=== PATIENT | female | born 1990 | race Caucasian/White ===

== ENCOUNTER 2017-03-29 21:36 | Emergency (ER) | payer OTHER ==
[~2017-03-29] VITALS: Ht 170.2 cm; Wt 72.5 kg
[~2017-03-29 21:36] MED LIST: NORE-17 PO; OMEP20CA16 PO
[2017-03-29 21:49] VITALS: Ht 170.2 cm; Wt 72.5 kg
[2017-03-29] MEDS ORDERED: ONDANSETRON 4 MG INJ IV STA (22:12)
[2017-03-29] MEDS ORDERED: DICYCLOMINE 10 MG CAP PO ONE (22:30)
[2017-03-29] MEDS ORDERED: SOD CHLORIDE 0.9% 1,000 ML IV ONE (22:30)
[2017-03-29 22:55] LABS: ADD SCAN DIFF NO
[2017-03-29 22:57] LABS: BASOPHILS % 0.5 % (0.0-2.0); EOSINOPHILS # 0.1 10^3/ul (0.0-0.5); EOSINOPHILS % 1.2 % (0.0-7.0); HEMATOCRIT 37.7 % (37.0-47.0); HEMOGLOBIN 12.5 g/dl (12.0-16.0); LYMPHOCYTES # 1.9 10^3/ul (0.8-2.9); LYMPHOCYTES % 22.5 % (15.0-51.0); MEAN CORPUSCULAR HEMOGLOBIN 29.7 pg (29.0-33.0); MEAN CORPUSCULAR HGB CONC 33.2 g/dl (32.0-37.0); MEAN CORPUSCULAR VOLUME 89.5 fl (82.0-101.0); MEAN PLATELET VOLUME 9.6 fl (7.4-10.4); MONOCYTE # 1.1 10^3/ul (0.3-0.9); MONOCYTES % 13.2 % (0.0-11.0); NEUTROPHIL # 5.2 10^3/ul (1.6-7.5); NEUTROPHILS % 62.4 % (39.0-77.0); PLATELET COUNT 284 10^3/UL (140-415); RED BLOOD COUNT 4.21 10^6/ul (4.20-5.40); RED CELL DISTRIBUTION WIDTH 13.2 % (11.5-14.5); WHITE BLOOD COUNT 8.3 10^3/ul (4.8-10.8)
[2017-03-29 23:01] LABS: ADD UMIC YES; UR ASCORBIC ACID NEGATIVE (NEGATIVE); UR BILIRUBIN (Dip) NEGATIVE (NEGATIVE); UR BLOOD (Dip) 3+ mg/dL (NEGATIVE); UR CLARITY SLIGHTLY CLOUDY (CLEAR); UR COLOR YELLOW (YELLOW); UR GLUCOSE (Dip) 2+ mg/dL (NEGATIVE); UR KETONES (Dip) NEGATIVE (NEGATIVE); UR LEUKOCYTE ESTERASE (Dip) NEGATIVE Leu/ul (NEGATIVE); UR NITRITE (Dip) NEGATIVE (NEGATIVE); UR RBC > 182 /HPF (0-5); UR SPECIFIC GRAVITY (Dip) 1.023 (1.003-1.030); UR TOTAL PROTEIN (Dip) 1+ mg/dl (NEGATIVE); UR UROBILINOGEN (Dip) NEGATIVE (NEGATIVE)
[2017-03-29 23:20] LABS: ALBUMIN 4.8 g/dl (3.3-4.9); ALBUMIN/GLOBULIN RATIO 1.5; BILIRUBIN,INDIRECT 0.2 mg/dl (0-1.1); BILIRUBIN,TOTAL 0.2 mg/dl (0.2-1.3); CALCIUM 9.3 mg/dl (8.4-10.2); CREATININE 0.72 mg/dl (0.44-1.00); POTASSIUM 3.3 mmol/L (3.5-5.1)
[2017-03-30] MEDS ORDERED: ONDA-43 PO (00:02)
[2017-03-30] MEDS ORDERED: LOPE2CAP PO (00:02)
[2017-03-30] MEDS ORDERED: CIPR500T4 PO (00:03)
[2017-03-30 00:29] VITALS: BP 101/62; PULSE 83; RESP 16
--- NOTE | 2017-03-30 04:33 | ERD ---
ER Documentation Chief Complaint Date/Time DATE: 03/30/17 TIME: 04:30 Chief Complaint n/v/d for 2 weeks HPI This is a 26-year-old female presents to the ER with nausea vomiting and diarrhea for the last 2 weeks. Vomiting is nonbilious nonbloody. Diarrhea is watery with no blood in it. Patient has not tried anything for her symptoms. Patient denies any fevers or chills. She denies any recent travel. Patient does admit to associated left lower quadrant crampy pain which is worse whenever she has to have a bout of diarrhea. ROS 12 point review of systems was done, all negative except per HPI. Medications Home Meds Active Scripts Ciprofloxacin Hcl* (Ciprofloxacin Hcl*) 500 Mg Tablet, 500 MG PO BID for 3 Days , TAB Prov:QUINN GRULLON 03/30/17 Loperamide Hcl* (Imodium*) 2 Mg Capsule, 2 MG PO .WITH EACH DIARRHEA Y for DIARRHEA for 3 Days, CAP MAX 16 mg/day Prov:QUINN GRULLON 03/30/17 Ondansetron Hcl* (Zofran*) 4 Mg Tab, 4 MG PO Q4H Y for NAUSEA AND OR VOMITING for 3 Days, TAB Prov:QUINN GRULLON 03/30/17 Reported Medications Norethindrone A-E Estradiol (GILDESS) 1 Each Tablet, 1 EACH PO, TAB 03/12/16 Omeprazole* (Omeprazole*) 20 Mg Capsule.dr, 20 MG PO DAILY, #30 CAP 03/12/16 Allergies Allergies: Coded Allergies: No Known Allergy (Verified , 07/27/12) PMhx/Soc History of Surgery: Yes (CHOLECYSTECTOMY) Anesthesia Reaction: No Hx Neurological Disorder: No Hx Respiratory Disorders: No Hx Cardiac Disorders: No Hx Psychiatric Problems: No Hx Miscellaneous Medical Probl: No Hx Alcohol Use: No Hx Substance Use: No Hx Tobacco Use: No Smoking Status: Never smoker Physical Exam Vitals Vital Signs Date Time Temp Pulse Resp B/P Pulse Ox O2 Delivery O2 Flow Rate FiO2 03/30/17 00:29 83 16 101/62 99 Room Air 03/29/17 21:49 97.5 77 18 124/66 100 Physical Exam GENERAL: The patient is well-developed, well-nourished, in no acute distress. NECK: Cervical spine is non tender with no step off. Supple, no nuchal rigidity HEENT: Atraumatic. Pupils equal, round and reactive to light. Extraocular muscles are grossly intact. Conjunctivae pink, no discharge. The oropharynx is clear with no erythema or exudates and the mucosa is moist. No signs of dehydration. RESPIRATORY: Clear to auscultation bilaterally. There are no rales, wheezes or rhonchi. HEART: Regular rate and rhythm. No murmurs, clicks, rubs or gallops. ABDOMEN: Soft, nontender, nondistended. Active bowel sounds in all 4 quadrants. No rebounding or guarding. Negative McBurney point tenderness. NEUROLOGIC: Alert and oriented. SKIN: There is no rash. The skin is warm and dry. Normal capillary refill. Result Diagram: 03/29/17222903/29/172229 Results 24 hrs Laboratory Tests Test 03/29/17 22:30 White Blood Count 8.310^3/ul Red Blood Count 4.2110^6/ul Hemoglobin 12.5g/dl Hematocrit 37.7% Mean Corpuscular Volume 89.5fl Mean Corpuscular Hemoglobin 29.7pg Mean Corpuscular Hemoglobin Concent 33.2g/dl Red Cell Distribution Width 13.2% Platelet Count 30326^3/UL Mean Platelet Volume 9.6fl Neutrophils % 62.4% Lymphocytes % 22.5% Monocytes % 13.2% Eosinophils % 1.2% Basophils % 0.5% Nucleated Red Blood Cells % 0.0/100WBC Neutrophils # 5.210^3/ul Lymphocytes # 1.910^3/ul Monocytes # 1.110^3/ul Eosinophils # 0.110^3/ul Basophils # 0.010^3/ul Nucleated Red Blood Cells # 0.010^3/ul Urine Color YELLOW Urine Clarity SLIGHTLY CLOUDY Urine pH 6.0 Urine Specific [place] 1.023 Urine Ketones NEGATIVEmg/dL Urine Nitrite NEGATIVEmg/dL Urine Bilirubin NEGATIVEmg/dL Urine Urobilinogen NEGATIVEmg/dL Urine Leukocyte Esterase NEGATIVELeu/ul Urine Microscopic RBC > 182/HPF Urine Microscopic WBC 8/HPF Urine Hemoglobin 3+mg/dL Urine Glucose 2+mg/dL Urine Total Protein 1+mg/dl Sodium Level 147mmol/L Potassium Level 3.3mmol/L Chloride Level 105mmol/L Carbon Dioxide Level 25mmol/L Anion Gap 20 Blood Urea Nitrogen 12mg/dl Creatinine 0.72mg/dl Glucose Level 107mg/dl Calcium Level 9.3mg/dl Total Bilirubin 0.2mg/dl Direct Bilirubin 0.00mg/dl Indirect Bilirubin 0.2mg/dl Aspartate Amino Transf (AST/SGOT) 19IU/L Alanine Aminotransferase (ALT/SGPT) 31IU/L Alkaline Phosphatase 81IU/L Total Protein 8.0g/dl Albumin 4.8g/dl Globulin 3.20g/dl Albumin/Globulin Ratio 1.50 Current Medications Medications (Trade) Dose Ordered Sig/Alex Route PRN Reason Start Time Stop Time Status Last Admin Dose Admin Sodium Chloride (NS) 1,000 ml @ 1,000 mls/hr Q1H ONCE IV 03/29/17 22:30 03/29/17 23:29 DC 03/29/17 22:32 Dicyclomine HCl (Bentyl) 20 mg ONCE ONCE PO 03/29/17 22:30 03/29/17 22:31 DC 03/29/17 22:33 Ondansetron HCl (Zofran Inj) 4 mg ONCE STAT IV 03/29/17 22:12 03/29/17 22:14 DC 03/29/17 22:32 Procedures/MDM This is a 26-year-old female presents to the ER with nausea vomiting and diarrhea this is likely acute gastroenteritis. Since patient has had PE symptoms for over a week she will be treated with a short course of Cipro for possible bacterial etiology. At this time patient did have slightly low sodium and potassium, however not very impressive. Patient is also does not have any symptoms of hyponatremia or hypokalemia. Patient was given fluids in the ER and felt significantly better. She was able to tolerate p.o. fluids. Patient will be sent home with Zofran, Imodium for her symptoms. She is afebrile and well- appearing. She is to follow-up with her primary care doctor within 1-2 days or return to ER sooner if symptoms worsen. My medical decision making shared with the patient she understands and agrees with plan. Departure Diagnosis: Primary Impression: Nausea vomiting and diarrhea Condition: Stable Patient Instructions: Self-Care for Vomiting and Diarrhea Additional Instructions: Llame al doctor LORETTA y sahara meliton VELIA PARA DENTRO DE 1-2 JIN.Dgale a la secretaria que nosotros le instruimos hacer esta velia.Avise o llame si vasquez condicin se empeora antes de la velia. Regresa aqui si peor o no mejor. QUINN GRULLON Mar 30, 2017 04:33
== END 2017-03-30 00:29 | disposition home or self-care (01) ==
LOC: FTE 21:36
DX: R11.2 Nausea with vomiting, unspecified (principal); R19.7 Diarrhea, unspecified
CPT/HCPCS: 80053; 81001; 85025; 96374; J2405; J7030; Z7502; Z7610

== ENCOUNTER 2018-06-11 07:03 | Day surgery (SDC) | END 2018-06-11 12:56 | disposition home or self-care (01) ==

== ENCOUNTER 2019-01-06 05:48 | Day surgery (SDC) | payer OTHER ==
[~2019-01-06] VITALS: Ht 165.1 cm; Wt 77.7 kg
[~2019-01-06 05:48] MED LIST changes: -NORE-17 PO
[2019-01-06 06:45] VITALS: Ht 165.1 cm; Wt 77.7 kg
[2019-01-06] MEDS ORDERED: FLUCONAZOLE (06:49)
[2019-01-06] MEDS ORDERED: SULFAMETHOXAZOLE (06:49)
[2019-01-06] MEDS ORDERED: DICYCLOMINE (06:49)
[2019-01-06 07:09] VITALS: BP 98/53; PULSE 69; RESP 16
[2019-01-06] MEDS ORDERED: MIDAZOLAM 1 MG/ML 2 ML INJ ONE ×2 (08:13→08:14)
[2019-01-06] MEDS ORDERED: FENTAnyl 50 MCG/ML VIAL ONE (08:13)
[2019-01-06 08:38] VITALS: BP 103/55; RESP 13
--- NOTE | 2019-01-06 11:32 | CONS ---
DATE OF ADMISSION: 01/06/2019 DATE OF CONSULTATION: PATIENT NAME: LINDSAY TA TYPE OF CONSULTATION: Preoperative gastroenterology. Dear Dr. Mckenzie: I thank you very much for this kind referral. HISTORY OF PRESENT ILLNESS: Ms. Lindsay Ta is a 28-year-old female patient who has been referred to me for further evaluation of upper abdominal pain, not responding to therapy with omeprazole. Th e patient had abdominal CT scan done and it was normal. The patient also complains of urgency to hav e a bowel movement after eating with chronic diarrhea. No rectal bleeding. She had a colonoscopy do ne by another market investigator. No colitis was identified. Her appetite has been good and there i s no history of significant weight loss. She is status post cholecystectomy. No liver disease. Not a hypertensive or diabetic. No heart disease, lung problem or kidney disease. SOCIAL HISTORY: Nonsmoker. No alcohol abuse. FAMILY HISTORY: No family history of gastrointestinal tract neoplasm. ALLERGIES: NO DRUG ALLERGIES. MEDICATIONS: Omeprazole. PHYSICAL EXAMINATION: VITAL SIGNS: She is 5 feet, 5 inches tall and weighs 169 pounds. HEART: Normal heart sounds. LUNGS: Clear. ABDOMEN: Soft. No masses. Normal bowel sounds. NEUROLOGIC: Normal. IMPRESSION: 1. Upper abdominal pain, not responding to therapy with omeprazole. 2. The patient had abdominal CT scan done and it was negative. 3. Urgency to have a bowel movement after eating with chronic diarrhea. 4. The patient had colonoscopy done by another market investigator and she states no abnormality was detected. 5. Status post cholecystectomy. PLAN: 1. Continue omeprazole. 2. Bentyl 10 mg p.o. t.i.d. before each meal. 3. Endoscopy for further evaluation. The procedure and possible complications are well explained to the patient. She understands and cons ents to the procedure. I thank you once again. With warmest personal regards, Dictated By: CRISTHIAN SCHAEFER/ELI Conf#: [id number] DID#: [id number]
== END 2019-01-06 10:52 | disposition home or self-care (01) ==
LOC: GIL 05:48
PROVIDERS: ATTEND Internal Medicine Gastroenterology
DX: K29.60 Other gastritis without bleeding (principal)
CPT/HCPCS: 43239; 88305; J2250; J3010; Z7610